=== PATIENT | female | born 1965 | race Caucasian/White ===

== ENCOUNTER 2016-06-17 10:20 | Inpatient (IN) ==
[2016-06-17] MEDS ORDERED: Ondansetron 4 MG/2 ML VIAL IVP PRN (12:58)
[2016-06-17] MEDS ORDERED: Naloxone 0.4 MG/ML INJ IVP PRN (12:58)
[2016-06-17] MEDS ORDERED: *HR* Morphine 2 MG/ML SYRINGE IVP PRN (13:01)
[2016-06-17] MEDS ORDERED: Acetaminophen IV 1,000 MG/100 ML INFUS..BTL IVPB PRN (13:01)
--- NOTE | 2016-06-17 13:25 | General Surg History&Physical ---
<Diane Yee A - Last Filed: 06/17/16 13:20> Date of Encounter: 06/17/16 Time of Encounter: 13:00 Assessment and Plan (1) SBO (small bowel obstruction) Current Visit: No Status: Acute The assessment and plan as outlined above was discussed with the patient and/or family members who expressed understanding and agreement. All questions were answered. Bowel rest with NG tube to LIWS IV fluids Serial abdominal exams Supportive care/pain control Incentive Spirometer every 1 hour while awake (2) DVT prophylaxis Current Visit: Yes Status: Acute The assessment and plan as outlined above was discussed with the patient and/or family members who expressed understanding and agreement. All questions were answered. Heparin 5,000 units SQ twice daily for DVT prophylaxis Ambulate TID with assistance History of Present Illness Chief complaint: Abdominal pain with associated nausea/vomiting HPI: Ms. Lopez is a 51 year old female who presented to [facility] with complaints of a 5 days history of abdominal pain with associated nausea/vomiting. She states that the pain did improve after a couple of days of onset and then returned yesterday. The pain is generalized in nature and she denies any radiating factors. Admits to persistent nausea/vomiting for the past 5 days. Admits to bloating. Her emesis is bilious. Denies any hematemesis of coffee ground emesis. Her last bowel movement was 5 days ago and she typically has a bowel movement 3 times per day. Denies any melena or hematochezia. Denies any flatus since yesterday. Admits to fevers and chills but did not check her temperature. Denies any difficulty with urination but states that her urine is dark. Denies any shortness of breath or chest pains. CT scan complete in the ED shows evidence of SBO. Patient transferred to [facility] for further work-up and management. Past Med Surg Social Fam HX - Past Medical History Source: patient, old records reviewed Medical history: hyperlipidemia, other (Right ovarian cyst (removed), Right breast mass (benign), Recurrent UTI, chronic neck/back pain) Psychiatric history: no psych history - Past Surgical History Surgical History: appendectomy, breast surgery (right breast excisional biopsy ( benign)), cholecystectomy, herniorrhaphy (12/[address] Acosta), other (Removal of right ovarian cyst; tubal ligation; X 2; ) - Social History Smoking Status: Never smoker Smokeless Tobacco Status: No Alcohol use: none Drug use: none Current living situation: Home - Independent Activity Level: Independent ambulation - Family History Mother Living Status: Age at : 58 Cause of : heart disease Hx Family Cardiac Disorders: Yes Hx Family Endocrine Disorder: Yes Father Living Status: Age at : 79 Cause of : prostate cancer Hx Family Cardiac Disorders: Yes Hx Family Respiratory Disorders: Yes Hx Family Cancer: Yes (prostate) Brother Living Status: Still Living Hx Family Cardiac Disorders: Yes (heart disease) Medications and Allergies Gabapentin [Neurontin] 300 mg PO TID 06/17/16 [History] Allergies Penicillins Allergy (Verified 12/06/15 09:08) Difficulty Breathing acetaminophen [From Vicodin] Adverse Reaction (Verified 12/06/15 09:08) Itching hydrocodone [From Vicodin] Adverse Reaction (Verified 12/06/15 09:08) Itching Review of Systems All systems PM: reviewed and no additional remarkable complaints except as stated (in the HPI) All systems PM: A 10-system review of systems was performed and is negative for pertinent findings except as documented above in the HPI. General Surgery Exam Initial Vital Signs Temp Pulse Resp BP Pulse Ox 98.0 F 86 16 147/87 95 06/17/16 12:20 06/17/16 12:20 06/17/16 12:20 06/17/16 12:20 06/17/16 12:20 - General physical appearance well developed, well nourished, moderate distress - Eyes normal ocular movement - ENT normal mucosa, atraumatic, normocephalic - Neck trachea midline - Respiratory normal respiratory effort, clear to auscultation - Cardiovascular Cardiovascular exam: Present: RRR - Abdomen Abdomen general surgery: Present: soft, distended, tender, wound (NG tube to LIWS) Abdominal Tenderness: Present: diffusely - Integumentary Integumentary general surgery: Present: warm and dry - Neurologic Present: CN 2-12 grossly intact - Musculoskeletal Present: normal posture - Psychiatric Psychiatric general surgery: Present: appropriate, oriented to person, oriented to place, oriented to time, speech is normal, memory intact Results - Labs All other labs normal. - Attending Attestation I examined this patient and my medical decision-making was reviewed with the STABLE HAND/PA/Advanced Practice Nurse/Resident Physician. I agree with the documented findings, disposition and treatment plan as described except to the extent set forth below. <Chandan Acosta - Last Filed: 06/17/16 15:54> History of Present Illness HPI: Ms. Lopez is a 51 year old female Review of Systems All systems PM: A 10-system review of systems was performed and is negative for pertinent findings except as documented above in the HPI. General Surgery Exam Initial Vital Signs Temp Pulse Resp BP Pulse Ox 98.0 F 86 16 147/87 95 06/17/16 12:20 06/17/16 12:20 06/17/16 12:20 06/17/16 12:20 06/17/16 12:20 Results - Labs All other labs normal. - Attending Attestation I personally evaluated the patient. abdominal exam demonstrates quiet bowel activity and no high pitched bowel sound. No guarding or rebound. I reviewed the CT images. Dilated proximal SB with a possible transition point. NG and serial exams. Laparotomy if no improvement with hydration and bowel rest. Chandan Acosta MD FACS
[2016-06-17] MEDS: Benzocaine 20% 9 GM GEL..GRAM. TP PRN (14:03)
[2016-06-17] MEDS: 0.9 % Sodium Chloride 1,000 ML IVC SCH (14:06)
[2016-06-17] MEDS: Pantoprazole 40 MG VIAL IVP SCH (14:06)
[2016-06-17] MEDS: Chloraseptic Spray 177 ML BOTTLE MM PRN (14:15)
[2016-06-17] MEDS: *HR* HYDROmorphone (PF) 1 MG/ML SYRINGE IVP PRN ×3 (16:14→22:03)
[2016-06-17] MEDS: *HR* Heparin 5,000 UNIT/ML VIAL SQ SCH (18:28)
[2016-06-17] MEDS: *HR* Metoprolol 5 MG/5 ML VIAL IVP SCH (18:29)
[2016-06-18] MEDS: *HR* Metoprolol 5 MG/5 ML VIAL IVP SCH ×4 (00:14→17:58)
[2016-06-18] MEDS: 0.9 % Sodium Chloride 1,000 ML IVC SCH ×3 (00:15→18:00)
[2016-06-18] MEDS: *HR* HYDROmorphone (PF) 1 MG/ML SYRINGE IVP PRN ×7 (00:22→22:49)
[2016-06-18] MEDS: *HR* Heparin 5,000 UNIT/ML VIAL SQ SCH ×2 (05:43→17:58)
--- NOTE | 2016-06-18 08:27 | General Surgery Progress Note ---
<Maco Diez - Last Filed: 06/18/16 08:25> Date of Encounter: 06/18/16 Time of Encounter: 08:25 - Assessment and Plan (1) SBO (small bowel obstruction) Current Visit: No Status: Acute Patient admitted on 06/17/16. Continues to have no bowel sounds,no flatus, no bm. mechanical vs. ileus Bowel rest with NG tube to LIWS IV fluids Serial abdominal exams Supportive care/pain control CBC, BMP. Incentive Spirometer every 1 hour while awake (2) DVT prophylaxis Current Visit: Yes Status: Acute Heparin 5,000 units SQ twice daily for DVT prophylaxis Ambulate TID with assistance Subjective Patient reports: pain is less, no flatus, no bowel movement Narrative: Patient seen and examined at bedside. Still no having any flatus or BM. No bowel sounds. Denies any nausea or vomiting. 225cc output in NG. Still having diffuse abdominal tenderness. Afebrile. Objective Vital Signs - Last 8 Hours Temp Pulse Resp BP Pulse Ox 06/18/16 07:27 98.1 F 82 16 131/85 93 L 06/18/16 04:43 98.2 F 84 14 127/78 92 L Intake and Output 06/17/16 06/18/16 06/18/16 23:59 07:59 15:59 Intake Total 0 / 0 1000 / 1000 Output Total 125 / 125 575 / 575 Balance -125 / -125 425 / 425 Intake: IV Fluids 1000 / 1000 0.9 % Sodium Chloride 1, 1000 / 1000 000 ML @ 100 mls/hr IVC . Q10H LUIS Rx#:[id number] Oral 0 / 0 0 / 0 Output: Urine 0 / 0 575 / 575 Gastric Drainage 125 / 125 Other: Meal NPO Weight 67.188 kg Blood Glucose* 83 82 Patient Weight 06/18/16 23:59 Weight 67.188 kg - Additional Exam - General physical appearance well developed, well nourished, moderate distress - Eyes normal ocular movement - ENT normal mucosa, atraumatic, normocephalic - Neck trachea midline - Respiratory normal respiratory effort, clear to auscultation - Cardiovascular Cardiovascular exam: Present: RRR - Abdomen Abdomen general surgery: Present: soft, distended, tender, wound (NG tube to LIWS) Abdominal Tenderness: Present: diffusely - Integumentary Integumentary general surgery: Present: warm and dry - Neurologic Present: CN 2-12 grossly intact - Musculoskeletal Present: normal posture - Psychiatric Psychiatric general surgery: Present: appropriate, oriented to person, oriented to place, oriented to time, speech is normal, memory intact Consult Discharge Plan - Plan Referrals: Yemi Tello MD [Primary Care Provider] - <Chandan Acosta - Last Filed: 06/18/16 13:48> Objective Vital Signs - Last 8 Hours Temp Pulse Resp BP Pulse Ox 06/18/16 10:41 97.6 F 89 16 126/82 91 L 06/18/16 10:29 97.7 F 75 17 122/80 95 06/18/16 07:27 98.1 F 82 16 131/85 93 L Intake and Output 06/17/16 06/18/16 06/18/16 23:59 07:59 15:59 Intake Total 0 / 0 1000 / 1000 1060 / 1060 Output Total 125 / 125 575 / 575 750 / 750 Balance -125 / -125 425 / 425 310 / 310 Intake: IV Fluids 1000 / 1000 1000 / 1000 0.9 % Sodium Chloride 1, 1000 / 1000 1000 / 1000 000 ML @ 100 mls/hr IVC . Q10H LUIS Rx#:[id number] Oral 0 / 0 0 / 0 0 / 0 Free Water 60 / 60 Output: Urine 0 / 0 575 / 575 350 / 350 Gastric Drainage 125 / 125 400 / 400 Other: Meal NPO NPO Stool Color Brown Yellow # Bowel Movements 0 Weight 67.188 kg Blood Glucose* 83 82 70 Patient Weight 06/18/16 23:59 Weight 67.188 kg - Labs 06/18/16 08:28 06/18/16 08:28 Diabetes panel 06/18/16 Range/Units 08:28 Sodium 139 (136-145) mEq/L Potassium 4.4 (3.5-4.5) mEq/L Chloride 104 (98-109) mEq/L Carbon Dioxide 24 (19-29) mEq/L BUN 19 (7-20) mg/dL Creatinine 0.74 (0.57-1.11) mg/dL Glucose 76 (70-99) mg/dL Calcium 8.6 (8.6-10.8) mg/dL Calcium panel 06/18/16 Range/Units 08:28 Calcium 8.6 (8.6-10.8) mg/dL Pituitary panel 06/18/16 Range/Units 08:28 Sodium 139 (136-145) mEq/L Potassium 4.4 (3.5-4.5) mEq/L Chloride 104 (98-109) mEq/L Carbon Dioxide 24 (19-29) mEq/L BUN 19 (7-20) mg/dL Creatinine 0.74 (0.57-1.11) mg/dL Glucose 76 (70-99) mg/dL Calcium 8.6 (8.6-10.8) mg/dL Adrenal panel 06/18/16 Range/Units 08:28 Sodium 139 (136-145) mEq/L Potassium 4.4 (3.5-4.5) mEq/L Chloride 104 (98-109) mEq/L Carbon Dioxide 24 (19-29) mEq/L BUN 19 (7-20) mg/dL Creatinine 0.74 (0.57-1.11) mg/dL Glucose 76 (70-99) mg/dL Calcium 8.6 (8.6-10.8) mg/dL - Attending Attestation I examined this patient and my medical decision-making was reviewed with the BLOW TORCH OPERATOR/PA/Advanced Practice Nurse/Resident Physician. I agree with the documented findings, disposition and treatment plan as described except to the extent set forth below. The patient was seen and evaluated with the resident on morning rounds. No bowel sounds. Ng output low. no bm yet. Plan continued NG and bowel rest with hydration Chandan Acosta MD FACS
[2016-06-18 08:44] LABS: Basophils # 0.1 K/mcL (0.0-0.2); Basophils % 0.6 %; Eosinophils # 0.1 K/mcL (0.0-0.6); Eosinophils % 1.3 %; Hematocrit 36.1 % (35.3-44.9); Hemoglobin 11.9 g/dL (11.5-15.4); Immature Granulocytes % 0.2 % (0-4); Lymphocytes # 1.3 K/mcL (0.6-4.6); Lymphocytes % 15.5 %; Mean Corpuscular Hemoglobin 31.4 pg (28.0-33.3); Mean Corpuscular Volume 95.3 fL (83.0-100.0); Mean Platelet Volume 10.4 fL (9.4-12.4); Monocytes # 0.8 K/mcL (0.0-1.3); Monocytes % 9.1 %; Neutrophils # 6.2 K/mcL (1.6-8.9); Platelet Count 182 K/mcL (140-400); Red Blood Count 3.79 M/mcL (3.82-4.97); Red Cell Distribution Width 13.5 % (11.5-14.5); Segmented Neutrophils % 73.3 %
[2016-06-18] MEDS: Pantoprazole 40 MG VIAL IVP SCH (08:48)
[2016-06-18 08:59] LABS: BUN/Creatinine Ratio 26 (6-26); Blood Urea Nitrogen 19 mg/dL (7-20); Calcium 8.6 mg/dL (8.6-10.8); Carbon Dioxide 24 mEq/L (19-29); Chloride 104 mEq/L (98-109); Glucose 76 mg/dL (70-99); Osmolality,Calculated 289 (280-300); Potassium 4.4 mEq/L (3.5-4.5); Sodium 139 mEq/L (136-145); eGFR For African Americans > 60 (> 60); eGFR For Non-African Americans > 60 (> 60)
[2016-06-18] MEDS ORDERED: Acetylcysteine 10% 2 ML INHSOL IH ONE (19:29)
[2016-06-18] MEDS ORDERED: Albuterol 2.5 MG/3 ML NEBULIZER IH ONE (19:38)
[2016-06-19] MEDS: *HR* HYDROmorphone (PF) 1 MG/ML SYRINGE IVP PRN ×8 (00:49→21:21)
[2016-06-19] MEDS: *HR* Metoprolol 5 MG/5 ML VIAL IVP SCH ×4 (00:49→17:32)
[2016-06-19] MEDS: *HR* Heparin 5,000 UNIT/ML VIAL SQ SCH ×2 (06:14→17:32)
[2016-06-19] MEDS: 0.9 % Sodium Chloride 1,000 ML IVC SCH (06:38)
--- NOTE | 2016-06-19 07:45 | General Surgery Progress Note ---
Date of Encounter: 06/19/16 Time of Encounter: 07:43 - Assessment and Plan (1) SBO (small bowel obstruction) Current Visit: Yes Status: Acute Patient admitted on 06/17/16. HD#2 She had a liquid BM yesterday. She is having flatus and has positive bowel sounds. This is a change as she hadn't had any BM or flatus prior. Continue bowel rest Transition NG tube to Durbin from LIWS and monitor for nausea/vomiting. If she becomes nauseated or vomits will return NG to LIWS. If pt. tolerates NG to durbin will plan to advance diet. IV fluids Serial abdominal exams Supportive care/pain control Protonix for GI prophylaxis Incentive Spirometer every 1 hour while awake (2) DVT prophylaxis Current Visit: Yes Status: Acute Heparin 5,000 units SQ twice daily for DVT prophylaxis Ambulate TID with assistance Subjective Patient reports: flatus, bowel movement Narrative: Patient seen and examined at bedside. Pt. reports she had a liquid BM yesterday. She is having flatus and has positive bowel sounds.. She remains afebrile. Objective Vital Signs - Last 8 Hours Temp Pulse Resp BP Pulse Ox 06/19/16 07:30 98.6 F 87 16 137/89 94 L 06/19/16 05:37 97.9 F 93 14 131/81 95 06/18/16 23:45 97.6 F 92 16 143/87 96 Intake and Output 06/18/16 06/18/16 06/19/16 15:59 23:59 07:59 Intake Total 1060 / 1060 1000 / 1000 1000 / 1000 Output Total 1275 / 1275 850 / 850 950 / 950 Balance -215 / -215 150 / 150 50 / 50 Intake: IV Fluids 1000 / 1000 1000 / 1000 1000 / 1000 0.9 % Sodium Chloride 1, 1000 / 1000 1000 / 1000 1000 / 1000 000 ML @ 100 mls/hr IVC . Q10H [facility] Rx#:[id number] Oral 0 / 0 0 / 0 Free Water 60 / 60 Output: Urine 350 / 350 800 / 800 Stool 200 / 200 Gastric Drainage 725 / 725 850 / 850 150 / 150 Right Nare 850 / 850 Other: Meal NPO NPO NPO Stool Size Small Stool Consistency liquid Stool Color Green # Bowel Movements 0 # Bowel Movement Diapers 1 Blood Glucose* 70 83 93 - Additional Exam - General physical appearance well developed, well nourished, moderate distress - Eyes normal ocular movement - ENT normal mucosa, atraumatic, normocephalic - Neck trachea midline - Respiratory normal respiratory effort, clear to auscultation - Cardiovascular Cardiovascular exam: Present: RRR - Abdomen Abdomen general surgery: Present: +BS, soft, distended, tender, NG to Durbin Abdominal Tenderness: Present: diffusely - Integumentary Integumentary general surgery: Present: warm and dry - Neurologic Present: CN 2-12 grossly intact - Musculoskeletal Present: normal posture - Psychiatric Psychiatric general surgery: Present: appropriate, oriented to person, oriented to place, oriented to time, speech is normal, memory intact - Labs 06/18/16 08:28 06/18/16 08:28 Diabetes panel 06/18/16 Range/Units 08:28 Sodium 139 (136-145) mEq/L Potassium 4.4 (3.5-4.5) mEq/L Chloride 104 (98-109) mEq/L Carbon Dioxide 24 (19-29) mEq/L BUN 19 (7-20) mg/dL Creatinine 0.74 (0.57-1.11) mg/dL Glucose 76 (70-99) mg/dL Calcium 8.6 (8.6-10.8) mg/dL Calcium panel 06/18/16 Range/Units 08:28 Calcium 8.6 (8.6-10.8) mg/dL Pituitary panel 06/18/16 Range/Units 08:28 Sodium 139 (136-145) mEq/L Potassium 4.4 (3.5-4.5) mEq/L Chloride 104 (98-109) mEq/L Carbon Dioxide 24 (19-29) mEq/L BUN 19 (7-20) mg/dL Creatinine 0.74 (0.57-1.11) mg/dL Glucose 76 (70-99) mg/dL Calcium 8.6 (8.6-10.8) mg/dL Adrenal panel 06/18/16 Range/Units 08:28 Sodium 139 (136-145) mEq/L Potassium 4.4 (3.5-4.5) mEq/L Chloride 104 (98-109) mEq/L Carbon Dioxide 24 (19-29) mEq/L BUN 19 (7-20) mg/dL Creatinine 0.74 (0.57-1.11) mg/dL Glucose 76 (70-99) mg/dL Calcium 8.6 (8.6-10.8) mg/dL Consult Discharge Plan - Plan Referrals: Yemi Tello MD [Primary Care Provider] - - Attending Attestation I examined this patient and my medical decision-making was reviewed with the GROUP SALES COORDINATOR/PA/Advanced Practice Nurse/Resident Physician. I agree with the documented findings, disposition and treatment plan as described except to the extent set forth below. The patient was seen and evaluated with the resident on morning rounds. Positive BM and decreased NG output, d/c ng and clear liquids Chandan Acosta MD FACS
[2016-06-19] MEDS: Pantoprazole 40 MG VIAL IVP SCH (08:43)
[2016-06-19] MEDS: Chloraseptic Spray 177 ML BOTTLE MM PRN (08:44)
[2016-06-19] MEDS ORDERED: *HR* Dextrose 50 % in Water (Syg) 50 ML SYRINGE IVP PRN (11:57)
[2016-06-19] MEDS: D5% in Water 1,000 ML IV PRN ×2 (12:27→21:21)
[2016-06-20] MEDS: *HR* Metoprolol 5 MG/5 ML VIAL IVP SCH ×4 (00:02→17:36)
[2016-06-20] MEDS: *HR* HYDROmorphone (PF) 1 MG/ML SYRINGE IVP PRN ×4 (00:05→08:30)
[2016-06-20] MEDS: Chloraseptic Spray 177 ML BOTTLE MM PRN (00:11)
[2016-06-20] MEDS: *HR* Heparin 5,000 UNIT/ML VIAL SQ SCH ×2 (05:54→17:36)
[2016-06-20] MEDS: Benzocaine 20% 9 GM GEL..GRAM. TP PRN ×2 (05:57→08:39)
--- NOTE | 2016-06-20 07:59 | General Surgery Progress Note ---
Date of Encounter: 06/20/16 Time of Encounter: 07:57 - Assessment and Plan (1) SBO (small bowel obstruction) Current Visit: Yes Status: Acute Patient admitted on 06/17/16. HD#3 She had a liquid BM on 06/19/16. She continues to have flatus and bowel sounds. She tolerated transitioning NG tube to Durbin from LIWS yesterday without nausea/ vomiting. Remove NG tube today and advance diet to clear liquids. IV fluids Serial abdominal exams Supportive care/pain control Protonix for GI prophylaxis Incentive Spirometer every 1 hour while awake (2) DVT prophylaxis Current Visit: Yes Status: Acute Heparin 5,000 units SQ twice daily for DVT prophylaxis Ambulate TID with assistance Subjective Patient reports: feels better, still having pain, flatus, no bowel movement Narrative: Patient seen and examined at bedside with Dr. Acosta. Pt. reports she continues to have flatus. She has positive bowel sounds. She had one stool yesterday, . She tolerated NG to durbin yesterday without vomiting/nausea. Will removed NG tube and advance to clear liquids today. Afebrile. Objective Vital Signs - Last 8 Hours Temp Pulse Resp BP Pulse Ox 06/20/16 07:21 99.2 F 94 15 150/92 97 06/20/16 04:31 98.6 F 98 15 151/89 90 L 06/20/16 00:46 97 F L 83 15 118/79 96 Intake and Output 06/19/16 06/19/16 06/20/16 15:59 23:59 07:59 Intake Total 0 / 0 1900 / 1900 Output Total 210 / 210 350 / 350 1550 / 1550 Balance -210 / -210 1550 / 1550 -1550 / -1550 Intake: IV Fluids 1900 / 1900 Dextrose 5% 1,000 ML @ 1000 / 1000 100 mls/hr IV CONT PRN Rx #:[id number] 0.9 % Sodium Chloride 1, 900 / 900 000 ML @ 100 mls/hr IVC . Q10H [facility] Rx#:[id number] Oral 0 / 0 0 / 0 Output: Urine 200 / 200 350 / 350 1550 / 1550 Gastric Drainage 10 / 10 0 / 0 Right Nare 10 / 10 0 / 0 Other: Meal NPO NPO Percent of Meal Consumed 0% 0% Weight 70.76 kg Blood Glucose* 87 87 116 Patient Weight 06/20/16 23:59 Weight 70.76 kg - Additional Exam - General physical appearance well developed, well nourished, moderate distress - Eyes normal ocular movement - ENT normal mucosa, atraumatic, normocephalic - Neck trachea midline - Respiratory normal respiratory effort, clear to auscultation - Cardiovascular Cardiovascular exam: Present: RRR - Abdomen Abdomen general surgery: Present: +BS, soft, distended, tender, NG (to be removed today) Abdominal Tenderness: Present: diffusely - Integumentary Integumentary general surgery: Present: warm and dry - Neurologic Present: CN 2-12 grossly intact - Musculoskeletal Present: normal posture - Psychiatric Psychiatric general surgery: Present: appropriate, oriented to person, oriented to place, oriented to time, speech is normal, memory intact - Labs 06/18/16 08:28 06/18/16 08:28 Consult Discharge Plan - Plan Referrals: Yemi Tello MD [Primary Care Provider] - - Attending Attestation I examined this patient and my medical decision-making was reviewed with the SILICATOR/PA/Advanced Practice Nurse/Resident Physician. I agree with the documented findings, disposition and treatment plan as described except to the extent set forth below. The patient is seen and evaluated on morning rounds with the resident Ng tube removed and clear liquids started Bowel obstruction appears to be resolving Chandan Acosta MD FACS
[2016-06-20] MEDS: 0.9 % Sodium Chloride 1,000 ML IVC SCH ×4 (08:20→21:36)
[2016-06-20] MEDS: Pantoprazole 40 MG VIAL IVP SCH (08:31)
[2016-06-21] MEDS: *HR* Metoprolol 5 MG/5 ML VIAL IVP SCH ×3 (00:50→14:38)
[2016-06-21] MEDS: *HR* Heparin 5,000 UNIT/ML VIAL SQ SCH ×2 (05:37→17:53)
[2016-06-21] MEDS: 0.9 % Sodium Chloride 1,000 ML IVC SCH ×2 (06:23→17:50)
[2016-06-21] MEDS: Pantoprazole 40 MG VIAL IVP SCH (08:44)
--- NOTE | 2016-06-21 12:48 | General Surgery Progress Note ---
Date of Encounter: 06/21/16 Time of Encounter: 12:46 - Assessment and Plan (1) SBO (small bowel obstruction) Status: Resolved Patient admitted on 06/17/16. HD#3 She had a liquid BM on 06/19/16. She continues to have flatus and bowel sounds. She has tolerated NG tube removal without nausea or vomiting. Advanced diet to full liquids. If she tolerates full liquid lunch will trial full regular diet for dinner. IV fluids Serial abdominal exams Supportive care/pain control Protonix for GI prophylaxis Incentive Spirometer every 1 hour while awake (2) DVT prophylaxis Status: Acute Heparin 5,000 units SQ twice daily for DVT prophylaxis Ambulate TID with assistance Subjective Patient reports: feels better, still having pain, pain is less, flatus, bowel movement, afebrile Narrative: Patient seen and examined at bedside with Dr. Acosta. NG tube was removed yesterday, she has tolerated clear liquids. Will advance to the liquids for lunch and possibly a regular diet for dinner if she tolerates for liquids for lunch. She is having flatus, and has positive bowel sounds. denies nausea and vomiting. Afebrile. Objective Vital Signs - Last 8 Hours Temp Pulse Resp BP Pulse Ox 06/21/16 11:12 98.5 F 67 16 118/94 97 06/21/16 08:11 98.7 F 75 17 118/97 97 Intake and Output 06/20/16 06/21/16 06/21/16 23:59 07:59 15:59 Intake Total 2504 / 2504 1176 / 1176 616 / 616 Output Total 350 / 350 400 / 400 300 / 300 Balance 2154 / 2154 776 / 776 316 / 316 Intake: IV Fluids 1184 / 1184 816 / 816 256 / 256 0.9 % Sodium Chloride 1, 1184 / 1184 816 / 816 256 / 256 000 ML @ 100 mls/hr IVC . Q10H [facility] Rx#:[id number] Oral 1320 / 1320 360 / 360 360 / 360 Output: Urine 350 / 350 400 / 400 300 / 300 Other: # Voids 1 Weight 71.1 kg Patient Weight 06/21/16 23:59 Weight 71.1 kg - Additional Exam - General physical appearance well developed, well nourished, no acute distress - Eyes normal ocular movement - ENT normal mucosa, atraumatic, normocephalic - Neck trachea midline - Respiratory normal respiratory effort, clear to auscultation - Cardiovascular Cardiovascular exam: Present: RRR - Abdomen Abdomen general surgery: Present: +BS, soft, distended, mild tenderness Abdominal Tenderness: Present: diffusely - Integumentary Integumentary general surgery: Present: warm and dry - Neurologic Present: CN 2-12 grossly intact - Musculoskeletal Present: normal posture - Psychiatric Psychiatric general surgery: Present: appropriate, oriented to person, oriented to place, oriented to time, speech is normal, memory intact - Labs 06/18/16 08:28 06/18/16 08:28 Consult Discharge Plan - Plan Instructions: Bowel Obstruction (DC) Additional Instructions: Follow up with Dr. Acosta or Taina Yee NP in 1-2 weeks. Referrals: Chandan Acosta MD [Partnered Physician] - Yemi Tello MD [Primary Care Provider] - - Attending Attestation I examined this patient and my medical decision-making was reviewed with the MANAGER PE/PA/Advanced Practice Nurse/Resident Physician. I agree with the documented findings, disposition and treatment plan as described except to the extent set forth below. The patient is seen and evaluated with rest and on morning rounds. She is regaining bowel activity and will be started on slow dietary advanced today. I anticipate discharge tomorrow if she continues to clinically improve. It appears that she had infectious gastroenteritis rather than bowel obstruction. Chandan Acosta MD FACS
[2016-06-21] MEDS: Ibuprofen 600 MG TABLET PO PRN (15:29)
[2016-06-22] MEDS: Ibuprofen 600 MG TABLET PO PRN (04:12)
[2016-06-22] MEDS: *HR* Heparin 5,000 UNIT/ML VIAL SQ SCH (05:50)
[2016-06-22 10:55] VITALS: BP 160/97
--- NOTE | 2016-06-22 11:19 | Discharge Summary ---
<Maco Diez - Last Filed: 06/22/16 11:12> Date of Encounter: 06/22/16 Time of Encounter: 11:12 - Discharge Diagnosis (1) SBO (small bowel obstruction) Priority: Primary Status: Resolved (2) DVT prophylaxis Priority: Primary Status: Acute - Discharge Medications Home Medications: Ascorbate Calcium [Vitamin C] 500 mg PO DAILY 06/17/16 [History] Cholecalciferol (D-3) [Vitamin D] 1,000 unit PO DAILY 06/17/16 [History] Cyanocobalamin (Vitamin B-12) [Vitamin B12] 1,000 mcg PO DAILY 06/17/16 [History ] Gabapentin [Neurontin] 300 mg PO TID 06/17/16 [History] Allergies/Adverse Reactions: Allergies Penicillins Allergy (Verified 12/06/15 09:08) Difficulty Breathing acetaminophen [From Vicodin] Adverse Reaction (Verified 12/06/15 09:08) Itching hydrocodone [From Vicodin] Adverse Reaction (Verified 12/06/15 09:08) Itching nitrofurantoin [From Macrobid] Adverse Reaction (Verified 06/17/16 19:05) Rash Date of admission: 06/17/16 12:58 Primary care physician: Yemi Tello MD Discharging clinician: Chandan Acosta Anticipated date of discharge: 06/22/16 - Patient Status Disposition: Home, Self-Care Condition: Good Overall status at discharge: patient is progressing back to baseline - Discharge Instructions Instructions: Bowel Obstruction (DC) Follow Up With: Yemi Tello MD [Primary Care Provider] - Chandan Acosta MD [Partnered Physician] - Additional Instructions: Follow up with Dr. Acosta or Taina Yee NP in 1-2 weeks. - Diet and Activity Activity: resume usual activities as tolerated Diet: advance to your usual diet Hospital course: Ms. Lopez is a 51 year old female who presented to [facility] ED with complaints of a 5 days history of abdominal pain with associated nausea/vomiting. She states that the pain did improve after a couple of days of onset and then returned yesterday. The pain is generalized in nature and she denies any radiating factors. Admits to persistent nausea/vomiting for the past 5 days. Admits to bloating. Her emesis is bilious. Denies any hematemesis of coffee ground emesis. Her last bowel movement was 5 days ago and she typically has a bowel movement 3 times per day. Denies any melena or hematochezia. Denies any flatus since yesterday. Admits to fevers and chills but did not check her temperature. Denies any difficulty with urination but states that her urine is dark. Denies any shortness of breath or chest pains. CT scan complete in the ED shows evidence of SBO. Patient transferred to [facility] for further work-up and management. Final diagnosis: small bowel instruction. Status: resolved. Ms. Lopez was treated with conservative measures for her small bowel obstruction, including NPO diet, nasogastric tube to while suction, serial abdominal exams, pain control, G.I. prophylaxis, and DVT prophylaxis. By hospital day 3 her bowel function had returned with multiple bowel movements , and flatus. Her diet was advanced to a full regular diet which she tolerated without nausea or vomiting. There were no imaging studies performed during this hospitalization. She encountered no complications during this hospitalization. Her vital signs remain stable throughout hospitalization, and were stable at the time of discharge. - Time Spent with Patient Total time spent providing and/or coordinating discharge services: Greater than 30 minutes - Constitutional Vitals: Temp Pulse Resp BP Pulse Ox 98.1 F 74 16 160/97 97 06/22/16 10:51 06/22/16 10:51 06/22/16 10:51 06/22/16 10:51 06/22/16 10:51 - Other Additional findings: - General physical appearance well developed, well nourished, no acute distress - Eyes normal ocular movement - ENT normal mucosa, atraumatic, normocephalic - Neck trachea midline - Respiratory normal respiratory effort, clear to auscultation - Cardiovascular Cardiovascular exam: Present: RRR - Abdomen Abdomen general surgery: Present: +BS, soft, distended, mild tenderness - Integumentary Integumentary general surgery: Present: warm and dry - Neurologic Present: CN 2-12 grossly intact - Musculoskeletal Present: normal posture - Psychiatric Psychiatric general surgery: Present: appropriate, oriented to person, oriented to place, oriented to time, speech is normal, memory intact - VTE Documentation of Mechanical Device: Graduated compression elastic hosiery <Chandan Acosta - Last Filed: 06/22/16 13:23> - Discharge Diagnosis (1) SBO (small bowel obstruction) Status: Resolved (2) DVT prophylaxis Status: Acute Date of admission: 06/17/16 12:58 Primary care physician: Yemi Tello MD Hospital course: Ms. Lopez is a 51 year old female - Time Spent with Patient Total time spent providing and/or coordinating discharge services: - Constitutional Vitals: Temp Pulse Resp BP Pulse Ox 98.1 F 74 16 160/97 97 06/22/16 10:51 06/22/16 10:51 06/22/16 10:51 06/22/16 10:51 06/22/16 10:51 - Attending Attestation I examined this patient and my medical decision-making was reviewed with the COURT WORKER/PA/Advanced Practice Nurse/Resident Physician. I agree with the documented findings, disposition and treatment plan as described except to the extent set forth below. The patient is seen and evaluated with the resident on morning rounds. She is having good bowel movements and no more abdominal pain. She has tolerated regular diet. Discharged home. Follow-up in 2 weeks. Chandan Acosta MD FACS
== END 2016-06-22 12:05 | disposition home or self-care (01) | DRG 390 ==
LOC: 3ANU
PROVIDERS: ADMIT Surgery; ATTEND Surgery

== ENCOUNTER 2016-10-11 02:07 | Inpatient (IN) ==
--- NOTE | 2016-10-11 01:47 | Internal Med History&Physical ---
Date of Encounter: 10/11/16 Time of Encounter: 01:46 Assessment and Plan (1) SBO (small bowel obstruction) Current visit: Yes Status: Acute patient with multiple prior surgeries followed by SBO from adhesions comes in with signs and symptoms concerning for SBO with confirmation from diagnostic imaging, we will admit for supportive management with IVF, NPO, NGT placement which pt declined, and pain management (2) UTI (urinary tract infection) Current visit: Yes Status: Suspected this is suspected , she has a hx of recurrent UTI and some of her old urine c/s grew anything from proteus, E-Coli to Klebsiella, she currently provides no symptoms, no leucocytosis and normal vitals, her sample was dirty but still concerning for UTI, we will follow her urine c/s and treat only if significant growth is reported Qualifiers: Urinary tract infection type: site unspecified Hematuria presence: without hematuria Qualified Code(s): N39.0 - Urinary tract infection, site not specified Internal Medicine - H&P: HPI Chief complaint: abdominal pain, nausea and vomiting Admitted From: Hospital to Hospital Transfer Plans for Post Hospital Care: Home History of present illness: Ms. Lopez is a 51 year old female with a history of prior small bowel obstruction(SBO) from adhesions was transferred from [facility] for acute SBO. She reports being in her usual state of health until the late morning of 10/10/16 when she started noticing abdominal distension, abdominal pain associated with nausea and vomiting. The pain was cramping in character, 4-5/10 in severity, located in the mid portion that was radiating diffusely. It was constant with colicky episodes. Her vomitus was described as bilious. She reports that she had a normal bowel movement in the morning at around 7am but around 9-10 am she could not pass gas at all. She reported to [facility] where she was found to have SBO on diagnostic imaging and sent here for further management. No fever, chills , or lower urinary symptoms but her urine sample taken at [facility] though dirty was suggestive of UTI for which she received a stat dose of IV ceftriaxone. Past Med Surg Social Fam HX - Past Medical History Medical history: hyperlipidemia, other Psychiatric history: no psych history - Past Surgical History Surgical History: appendectomy, breast surgery, , cholecystectomy, herniorrhaphy, other (appendectomy, breast surgery (right breast excisional biopsy (benign)), cholecystectomy, herniorrhaphy (12/[address] Acosta), other ( Removal of right ovarian cyst; tubal ligation; X 2; )) - Social History Smoking Status: Never smoker Smokeless Tobacco Status: No Alcohol use: none Drug use: none - Family History Mother Living Status: Hx Family Cardiac Disorders: Yes Hx Family Endocrine Disorder: Yes Father Living Status: Hx Family Cardiac Disorders: Yes Hx Family Respiratory Disorders: Yes Hx Family Cancer: Yes (prostate) Brother Living Status: Still Living Hx Family Cardiac Disorders: Yes (heart disease) Internal Medicine - H&P: Meds Magnesium Oxide/Mag Aa Chelate [Magnesium 300 mg Capsule] 2 tab PO BID 08/29/16 [History] Polyethylene Glycol 3350 [MiraLAX bowel prep] 2 tab PO BID 08/29/16 [History] Allergies nitrofurantoin [From Macrobid] Allergy (Severe, Verified 08/29/16 09:38) Rash Penicillins Allergy (Severe, Verified 08/29/16 09:38) Difficulty Breathing acetaminophen [From Vicodin] Adverse Reaction (Intermediate, Verified 08/29/16 09:38) Itching hydrocodone [From Vicodin] Adverse Reaction (Intermediate, Verified 08/29/16 09: 38) Itching All Systems PM: A 10-system review of systems was performed and is negative for pertinent findings except as documented above in the HPI. - Constitutional Vitals: Temp Pulse Resp BP Pulse Ox 97.8 F 87 16 116/69 96 10/11/16 01:37 10/11/16 01:37 10/11/16 01:37 10/11/16 01:37 10/11/16 01:37 GENERAL: Adult female, lying in bed, Alert, in mild distress, HEENT: NC/AT, EOMI, PERRLA, anicteric sclera, normal conjunctiva, supple, clear nares, dry mucous membranes, clear oropharynx, RESP: Lungs are clear to auscultation bilaterally, good AE bilaterally, No crackles or wheeze CARDIO: Normal hearts sounds; S1 and 2, RRR with no murmurs, no JVD, no ankle edema GI: Soft, full, mild diffuse tenderness, no guarding, no organomegaly felt, hyperactive bowel sounds heard MUSCULOSKELETAL: grossly normal movements bilaterally, no deformities noted, no calf tenderness NEUROLOGIC: CN 2-12 intact grossly. No motor/sensory deficit appreciated, PSYCHIATRY: AAO x 3. Mood is fair, SKIN: no skin rash noted Internal Med - H&P Results - Diagnostic Studies CT scan - abdomen Status: image reviewed by me
[~2016-10-11 02:07] MED LIST: *HR* HYDROmorphone (PF) 1 MG/ML SYRINGE IVP PRN; Naloxone 0.4 MG/ML INJ IVP PRN; Ondansetron 4 MG/2 ML VIAL IVP PRN
[2016-10-11] MEDS: 0.9 % Sodium Chloride 1,000 ML IVC SCH ×3 (02:55→23:05)
[2016-10-11 05:43] LABS: Hematocrit 37.7 % (35.3-44.9); Hemoglobin 12.6 g/dL (11.5-15.4); Mean Corpuscular HGB Conc 33.4 g/dL (31.6-35.5); Mean Corpuscular Hemoglobin 31.7 pg (28.0-33.3); Mean Corpuscular Volume 94.7 fL (83.0-100.0); Mean Platelet Volume 11.1 fL (9.4-12.4); Platelet Count 202 K/mcL (140-400); Red Blood Count 3.98 M/mcL (3.82-4.97); Red Cell Distribution Width 12.6 % (11.5-14.5)
[2016-10-11 05:59] LABS: BUN/Creatinine Ratio 19 (6-26); Blood Urea Nitrogen 14 mg/dL (7-20); Calcium 8.7 mg/dL (8.6-10.8); Carbon Dioxide 23 mEq/L (19-29); Chloride 107 mEq/L (98-109); Glucose 88 mg/dL (70-99); Magnesium 1.7 mg/dL (1.6-2.6); Osmolality,Calculated 286 (280-300); Phosphorous 3.4 mg/dL (2.3-4.7); Sodium 138 mEq/L (136-145); eGFR For African Americans > 60 (> 60); eGFR For Non-African Americans > 60 (> 60)
[2016-10-11] MEDS: *HR* Heparin 5,000 UNIT/ML VIAL SQ SCH ×3 (09:51→23:03)
[2016-10-11] MEDS ORDERED: Acetaminophen IV 1,000 MG/100 ML INFUS..BTL IVPB ONE (09:59)
--- NOTE | 2016-10-11 15:19 | Internal Med Progress Note ---
<Jorden Barnes - Last Filed: 10/11/16 15:36> Date of Encounter: 10/11/16 Time of Encounter: 15:15 - Assessment and plan (1) SBO (small bowel obstruction) Current Visit: No Status: Acute Assessment and plan: patient now having bowel movements and pain free. Abdominal exam is benign. Currently pain free. N/V have resolved. Unlikely to be SBO. I will order small bowel follow through to confirm. If abnormal will place NG and consult surgery. If normal transit will start her on clears. (2) History of recurrent UTI (urinary tract infection) Current Visit: Yes Status: Acute Assessment and plan: Patient has history of recurrent UTIs. UA suggestive of possible infection. However she is asymptomatic. Her pH is high. Possibly colonized with proteus. afebrile, normal WBC, asympomatic and without LUTS. However as she is asymptomatic will hold off on treatment as antibiotics are not indicated in asymptomatic bacteria. follow up with culture results. (3) DVT prophylaxis Current Visit: No Status: Acute Assessment and plan: SQ heparin. - Subjective Interval history: Patient states that she is feeling much better. She had a large BM this AM Her abdominal pain, Nausea and vomittig have resolved. She complains of a mild sinus headache since this AM but denies any nasal discharge fever, post nasal drip or cough. she has no further complains or concerns at this time. - Constitutional Vitals: Temp Pulse Resp BP Pulse Ox 98.2 F 84 16 152/87 95 10/11/16 10:38 10/11/16 10:38 10/11/16 10:38 10/11/16 10:38 10/11/16 10:38 Exam: Gen.: This is a well-developed well-nourished 51-year-old female who is alert and orientated to person place and situation. She is lying that appears to be comfortable she distress at this time. Head: That is normal cephalic atraumatic. EENT: Anicteric sclera, pupils equally round react light and accommodation. Her head is normocephalic and atraumatic. Moist mucous membranes. Dentition intact. Neck is supple without mass or thyromegaly. Tongue and trachea are midline. Heart: Regular rate and rhythm without murmurs rubs or gallops. Lungs: Clear to auscultation bilaterally. Normal effort breathing. Abdomen: The abdomen is obese, bowel sounds are positive in all quadrants, no bruits, the abdomen is soft and nontender to palpation. No organomegaly or masses present. She does have multiple surgical healed scars. Musculoskeletal: Grossly normal for age no gross deformity noted. Extremities: No clubbing, cyanosis or edema. Integument: No rashes or lesions. Psych: Patient is alert and orientated has a normal affect and cooperates fully with both the interview and physical. Internal Medicine: Result - Labs CBC & Chem 7: 10/11/16 05:08 10/11/16 05:08 Labs: Short CBC 10/11/16 Range/Units 05:08 WBC 9.5 (4.3-11.1) K/mcL Hgb 12.6 D (11.5-15.4) g/dL Hct 37.7 (35.3-44.9) % Plt Count 202 (140-400) K/mcL BMP 10/11/16 05:08 Sodium 138 Potassium 4.0 Chloride 107 Carbon Dioxide 23 BUN 14 Creatinine 0.72 Glucose 88 Calcium 8.7 - Impressions Impressions Small Bowel X-Ray 10/11/16 10:35 IMPRESSION: There are some mildly prominent loops of small bowel in the abdomen but with progression of contrast past these small bowel loops into more distal small bowel to include terminal ileum and ascending colon without discrete transition point or other bowel abnormality noted. Given the findings on the recent CT exam, findings could reflect a resolving low-grade bowel obstruction or could reflect an ileus. D/ / 10/11/2016 14:22:02 Brad Hodges MD / [facility] Inter[facility]ting Provider: Brad Hodges MD Consult Discharge Plan - Plan Referrals: Yemi Tello MD [Primary Care Provider] - <Jose C Knapp - Last Filed: 10/11/16 18:59> Date of Encounter: 10/11/16 - Constitutional Vitals: Temp Pulse Resp BP Pulse Ox 98.2 F 84 16 152/87 95 10/11/16 10:38 10/11/16 10:38 10/11/16 10:38 10/11/16 10:38 10/11/16 10:38 Internal Medicine: Result - Labs CBC & Chem 7: 10/11/16 05:08 10/11/16 05:08 Labs: Short CBC 10/11/16 Range/Units 05:08 WBC 9.5 (4.3-11.1) K/mcL Hgb 12.6 D (11.5-15.4) g/dL Hct 37.7 (35.3-44.9) % Plt Count 202 (140-400) K/mcL BMP 10/11/16 05:08 Sodium 138 Potassium 4.0 Chloride 107 Carbon Dioxide 23 BUN 14 Creatinine 0.72 Glucose 88 Calcium 8.7 - Impressions Impressions Small Bowel X-Ray 10/11/16 10:35 IMPRESSION: There are some mildly prominent loops of small bowel in the abdomen but with progression of contrast past these small bowel loops into more distal small bowel to include terminal ileum and ascending colon without discrete transition point or other bowel abnormality noted. Given the findings on the recent CT exam, findings could reflect a resolving low-grade bowel obstruction or could reflect an ileus. D/ / 10/11/2016 14:22:02 Brad Hodges MD / [facility] Interpreting Provider: Brad Hodges MD - Attending Attestation I examined this patient and my medical decision-making was reviewed with the Resident Physician, Dr. Barnes. I agree with the documented findings, disposition and treatment plan as described. patient's abdomen is soft. She passed a bowel movement. She states that her abdominal pain I have reviewed the chart from outside hospital, urinalysis is positive fornitrate and WBC. Per her records she has had multiple positive urine cultures with Esche and Proteus. We will treat her presumed UTI Which ceftriaxone. She has tolerated ceftriaxone in the past.
[2016-10-11] MEDS ORDERED: Ketorolac 15 MG/ML VIAL IVP ONE (16:48)
[2016-10-11] MEDS ORDERED: Ibuprofen 400 MG TABLET PO ONE (22:48)
[2016-10-12 05:35] LABS: Basophils % 0.6 %; Eosinophils # 0.3 K/mcL (0.0-0.6); Hematocrit 34.6 % (35.3-44.9); Hemoglobin 10.9 g/dL (11.5-15.4); Immature Granulocytes % 0.2 % (0-4); Lymphocytes # 1.9 K/mcL (0.6-4.6); Lymphocytes % 37.6 %; Mean Corpuscular HGB Conc 31.5 g/dL (31.6-35.5); Mean Corpuscular Hemoglobin 30.4 pg (28.0-33.3); Mean Corpuscular Volume 96.6 fL (83.0-100.0); Mean Platelet Volume 10.6 fL (9.4-12.4); Monocytes # 0.4 K/mcL (0.0-1.3); Monocytes % 8.3 %; Neutrophils # 2.4 K/mcL (1.6-8.9); Platelet Count 158 K/mcL (140-400); Red Blood Count 3.58 M/mcL (3.82-4.97); Red Cell Distribution Width 12.6 % (11.5-14.5); Segmented Neutrophils % 47.3 %
[2016-10-12 06:02] LABS: BUN/Creatinine Ratio 20 (6-26); Blood Urea Nitrogen 14 mg/dL (7-20); Calcium 8.3 mg/dL (8.6-10.8); Carbon Dioxide 27 mEq/L (19-29); Chloride 108 mEq/L (98-109); Glucose 82 mg/dL (70-99); Osmolality,Calculated 288 (280-300); Potassium 4.3 mEq/L (3.5-4.5); Sodium 139 mEq/L (136-145); eGFR For African Americans > 60 (> 60); eGFR For Non-African Americans > 60 (> 60)
[2016-10-12 06:34] VITALS: BP 164/93
[2016-10-12] MEDS: *HR* Heparin 5,000 UNIT/ML VIAL SQ SCH (08:14)
--- NOTE | 2016-10-12 09:36 | Discharge Summary ---
<Molly,Jorden Batres - Last Filed: 10/12/16 09:34> Date of Encounter: 10/12/16 Time of Encounter: 09:34 - Discharge Diagnosis (1) SBO (small bowel obstruction) Priority: Primary Status: Acute (2) History of recurrent UTI (urinary tract infection) Priority: Primary Status: Acute (3) DVT prophylaxis Priority: Secondary Status: Acute - Discharge Medications Prescriptions: Cefdinir [Omnicef] 300 mg PO BID #8 capsule Ondansetron HCl [Zofran] 4 mg PO Q8H PRN #21 tablet PRN Reason: Nausea Home Medications: Gabapentin [Neurontin] 300 mg PO TID 10/11/16 [History] Cefdinir [Omnicef] 300 mg PO BID #8 capsule 10/12/16 [Rx] Ondansetron HCl [Zofran] 4 mg PO Q8H PRN #21 tablet 10/12/16 [Rx] Allergies/Adverse Reactions: Allergies nitrofurantoin [From Macrobid] Allergy (Severe, Verified 08/29/16 09:38) Rash Penicillins Allergy (Severe, Verified 08/29/16 09:38) Difficulty Breathing acetaminophen [From Vicodin] Adverse Reaction (Intermediate, Verified 08/29/16 09:38) Itching hydrocodone [From Vicodin] Adverse Reaction (Intermediate, Verified 08/29/16 09: 38) Itching Date of admission: 10/11/16 02:07 Primary care physician: Yemi Tello MD Discharging clinician: Jorden Barnes Anticipated date of discharge: 10/12/16 - Patient Status Disposition: Home, Self-Care Condition: Good Functional capacity at discharge: independent ambulation Overall status at discharge: patient is back to baseline - Discharge Instructions Follow Up With: Yemi Tello MD [Primary Care Provider] - - Diet and Activity Activity: increase activity as tolerated Diet: advance to your usual diet Hospital course: Ms. Lopez is a 51 year old female who was admitted to [facility] for suspected small bowel extraction. CT scan of the abdomen from an outside facility did suggest a possible small bowel obstruction. However when the patient arrived she was having bowel movements and had a benign abdominal exam. Additionally her nausea vomiting had resolved and she was requesting a diet. We did conduct a small bowel follow-through which showed transit of contrast into the colon. Additionally patient had a UTI. She was treated with Rocephin. Most likely her symptoms were either related to her UTI or she had a very low-grade obstruction which resolved on its own. This morning she is asymptomatic and tolerating a diet. She has no major abnormalities on her vital signs or her lab work. She is ambulating and having normal bowel movements and bladder function. We will discharge her on Omnicef. I did note her penicillin allergy however she has been on Rocephin and has had no reaction with that medication. Her urine cultures have not finalization tomorrow we will plan to follow-up on those cultures and should she be resistant to cephalosporins we will give her a call in full in a different antibiotic. She was his back her understanding and agreement to the above plan. Follow-up with her PCP in one week. - Time Spent with Patient Total time spent providing and/or coordinating discharge services: Greater than 30 minutes - Constitutional Vitals: Temp Pulse Resp BP Pulse Ox 97.5 F L 67 16 164/93 99 10/12/16 06:28 10/12/16 06:28 10/12/16 06:28 10/12/16 06:28 10/12/16 06:28 - Head Head exam: Present: atraumatic, normocephalic - Eye Eye exam: Present: PERRL, conjuntiva pink, sclera anicteric Pupils: Present: PERRL - Neck Neck exam general surgery: Present: supple, trachea midline. Absent: lymphadenopathy - Respiratory Respiratory exam: Present: CTAB. Absent: accessory muscle use, rales, rhonchi, wheezes - Cardiovascular Cardiovascular exam: Present: RRR, +S1, +S2. Absent: diastolic murmur, gallop, rubs, systolic murmur - GI/Abdominal GI/Abdominal exam: Present: normal bowel sounds, soft, no peritoneal signs. Absent: distended, tenderness - Extremities Exam Extremities exam: Present: warm, radial pulses palpable and symetrical. Absent : calf tenderness, cyanotic, pedal edema - Skin Skin exam: Present: dry, intact <Jose C Knapp - Last Filed: 10/12/16 19:15> Date of Encounter: 10/12/16 Date of admission: 10/11/16 02:07 Primary care physician: Yemi Tello MD - Patient Status Functional capacity at discharge: independent ambulation Overall status at discharge: patient is back to baseline - Diet and Activity Activity: increase activity as tolerated Diet: advance to your usual diet Hospital course: Ms. Lopez is a 51 year old female - Time Spent with Patient Total time spent providing and/or coordinating discharge services: - Constitutional Vitals: Temp Pulse Resp BP Pulse Ox 97.5 F L 67 16 164/93 99 10/12/16 06:28 10/12/16 06:28 10/12/16 06:28 10/12/16 06:28 10/12/16 06:28 - Attending Attestation I examined this patient and my medical decision-making was reviewed with the Resident Physician, Dr. Barnes. I agree with the documented findings, disposition and treatment plan as described except to the extent set forth below. n exam patient's abdomen is soft, nontender, with normoactive bowel sounds. The patient's symptoms have resolvedand she will be discharged home with close follow-up with PCP.
[2016-10-12] MEDS: 0.9 % Sodium Chloride 1,000 ML IVC SCH (10:33)
== END 2016-10-12 11:32 | disposition home or self-care (01) | DRG 389 ==
LOC: 3ANU → SUATTDRO 02:07
PROVIDERS: ADMIT Internal Medicine Endocrinology, Diabetes & Metabolism; ATTEND Internal Medicine